=== PATIENT | male | born 1975 | race Caucasian/White ===

== ENCOUNTER 2018-12-25 09:14 | Inpatient (IN) | payer MEDICAID ==
[~2018-12-25] VITALS: Ht 167.6 cm; Wt 69.0 kg
[~2018-12-25 09:14] MED LIST: BENZ1TAB10 PO; BUPR150SR PO; BUSP10TA23 PO; DARU800T PO; GABA-531 PO; HALO5TAB2 PO; LEVO75 PO; OMEP20 PO; PARO20TA24 PO; QUET100T PO; QUET200T PO; RISP4 PO; RITO100T PO; TRAZ-252 PO; TRUVT PO
[2018-12-25] MEDS ORDERED: HALOPERIDOL 5 MG TABLET PO PRN ×2 (09:30→10:15)
[2018-12-25 09:35] VITALS: BP 106/74
[2018-12-25] MEDS ORDERED: QUEtiapine FUMARATE 200 MG TABLET PO PRN (10:15)
[2018-12-25 10:57] VITALS: BP 115/80
[2018-12-25] MEDS ORDERED: PNEUMOCOCCAL VACCINE POLYVALENT 0.5 ML VIAL [PPSV23] IM ONE (11:00)
[2018-12-25] MEDS: OLANZapine 10 MG TABLET PO SCH ×2 (11:14→20:22)
[2018-12-25] MEDS ORDERED: INFLUENZA VIRUS VACCINE QVS 2019-20 (3YR+)/PF 60 MCG/0.5 ML SYRINGE IM ONE (12:30)
[2018-12-25 16:00] VITALS: BP 108/65
[2018-12-25] MEDS ORDERED: GuaiFENesin/D-METHORPHAN [SUGAR-FREE] 200-20MG/10 ML SYRUP UDCUP PO PRN (16:00)
[2018-12-25] MEDS: LORazepam 2 MG TABLET PO PRN ×2 (16:00→20:31)
[2018-12-25] MEDS ORDERED: ONDANSETRON HCL 4 MG TABLET PO PRN (16:00)
[2018-12-25] MEDS ORDERED: MAGNESIUM HYDROXIDE SUSPENSION 30 ML UDCUP PO PRN (16:00)
[2018-12-25] MEDS ORDERED: DOCUSATE SODIUM 100 MG CAPSULE PO PRN (16:00)
[2018-12-25] MEDS ORDERED: IBUPROFEN 400 MG TABLET PO PRN (16:00)
[2018-12-25] MEDS ORDERED: LOPERAMIDE HCL 2 MG CAPSULE PO PRN (16:00)
[2018-12-25] MEDS ORDERED: ACETAMINOPHEN 325 MG TABLET PO PRN (16:00)
[2018-12-25] MEDS ORDERED: NICOTINE 14 MG/24 HOUR PATCH TD PRN (16:00)
[2018-12-25] MEDS ORDERED: MAG HYDROX/AL HYDROX/SIMETH ES 30 ML SUSPENSION UDCUP PO PRN (16:00)
[2018-12-25] MEDS ORDERED: CloNIDine HCL 0.1 MG TABLET PO PRN (16:00)
[2018-12-25] MEDS ORDERED: ALBUTEROL SULFATE HFA 90 MCG/PUFF 8 GM INHALER IH PRN (16:00)
[2018-12-25] MEDS: QUEtiapine FUMARATE 100 MG TABLET PO PRN (16:00)
[2018-12-25] MEDS ORDERED: PETROLATUM,WHITE 28 GM JELLY TP PRN (16:00)
[2018-12-25] MEDS: ZOLPIDEM TARTRATE 10 MG TABLET PO PRN (20:22)
[2018-12-26] MEDS: RITONAVIR 100 MG TABLET PO SCH (06:48)
[2018-12-26] MEDS: LEVOTHYROXINE SODIUM 75 MCG TABLET PO SCH (06:48)
[2018-12-26] MEDS: DARUNAVIR ETHANOLATE 800 MG TABLET PO SCH (06:48)
[2018-12-26 08:11] LABS: BASOPHILS % (AUTO) 1.3 % (0.0-2.0); EOSINOPHILS % (AUTO) 2.6 % (1.0-6.0); HEMATOCRIT 40.7 % (41-53); HEMOGLOBIN 13.7 g/dL (13.5-17.5); LYMPHOCYTES # (AUTO) 1.9 K/uL (1.0-4.8); LYMPHOCYTES % (AUTO) 48.1 % (22.0-44.0); MEAN CORPUSCULAR HEMOGLOBIN 33.8 pg (26.0-34.0); MEAN CORPUSCULAR HGB CONC 33.6 G/dL (31.0-37.0); MEAN CORPUSCULAR VOLUME 101 fL (80-100); MONOCYTES # (AUTO) 0.4 K/uL (0.1-1.0); MONOCYTES % (AUTO) 8.8 % (2.0-9.0); NEUTROPHILS # (AUTO) 1.6 K/uL (1.8-7.7); NEUTROPHILS % (AUTO) 39.2 % (40.0-70.0); PLATELET COUNT (AUTO) 274 K/uL (150-450); RED BLOOD CELL COUNT(AUTO) 4.04 MIL/uL (4.50-5.90); RED CELL DISTRIBUTION WIDTH 14.3 % (11.5-14.5)
[2018-12-26 08:22] LABS: HEMOGLOBIN A1C 4.4 % (4.5-6.2)
[2018-12-26 08:48] LABS: ALBUMIN 3.7 g/dL (3.4-5.0); BILIRUBIN,TOTAL 0.4 mg/dL (0.1-1.0); CALCIUM, TOTAL 9.1 mg/dL (8.8-10.5); CREATININE 1.65 mg/dL (0.60-1.30); FREE T4 (FREE THYROXINE) 0.68 ng/dL (0.76-1.46); POTASSIUM 3.5 mmol/L (3.5-5.1); THYROID STIMULATING HORMONE 1.83 uIU/mL (0.36-3.74); TOTAL PROTEIN, SERUM 7.3 g/dL (6.4-8.2)
[2018-12-26] MEDS: OLANZapine 10 MG TABLET PO SCH ×2 (09:43→20:27)
[2018-12-26] MEDS: EMTRICITABINE/TENOFOVIR 200-300 MG TABLET PO SCH (09:43)
[2018-12-26] MEDS: OMEPRAZOLE 20 MG CAPSULE PO SCH (09:44)
[2018-12-26] MEDS: LORazepam 2 MG TABLET PO PRN (19:25)
[2018-12-26] MEDS: ZOLPIDEM TARTRATE 10 MG TABLET PO PRN (20:27)
[2018-12-26] MEDS: QUEtiapine FUMARATE 100 MG TABLET PO PRN (22:04)
[2018-12-27] MEDS: DARUNAVIR ETHANOLATE 800 MG TABLET PO SCH (06:38)
[2018-12-27] MEDS: RITONAVIR 100 MG TABLET PO SCH (06:38)
[2018-12-27] MEDS: LEVOTHYROXINE SODIUM 75 MCG TABLET PO SCH (06:38)
[2018-12-27 08:24] VITALS: BP 103/73
[2018-12-27] MEDS: OLANZapine 10 MG TABLET PO SCH ×2 (08:56→20:14)
[2018-12-27] MEDS: OMEPRAZOLE 20 MG CAPSULE PO SCH (08:56)
[2018-12-27] MEDS: EMTRICITABINE/TENOFOVIR 200-300 MG TABLET PO SCH (08:56)
[2018-12-27 16:00] VITALS: BP 104/64
[2018-12-27] MEDS: LORazepam 2 MG TABLET PO PRN ×2 (16:32→21:34)
[2018-12-27] MEDS: QUEtiapine FUMARATE 100 MG TABLET PO PRN (16:32)
[2018-12-27] MEDS: ZOLPIDEM TARTRATE 10 MG TABLET PO PRN (20:14)
[2018-12-28] MEDS: LEVOTHYROXINE SODIUM 75 MCG TABLET PO SCH (06:30)
[2018-12-28] MEDS: DARUNAVIR ETHANOLATE 800 MG TABLET PO SCH (06:31)
[2018-12-28] MEDS: RITONAVIR 100 MG TABLET PO SCH (06:31)
[2018-12-28 08:02] VITALS: BP 100/64
[2018-12-28] MEDS: OLANZapine 10 MG TABLET PO SCH ×2 (08:22→20:53)
[2018-12-28] MEDS: OMEPRAZOLE 20 MG CAPSULE PO SCH (08:23)
[2018-12-28] MEDS: EMTRICITABINE/TENOFOVIR 200-300 MG TABLET PO SCH (08:23)
[2018-12-28] MEDS: BuPROPion HCL XL 150 MG ER TABLET PO SCH (12:15)
[2018-12-28 16:00] VITALS: BP 103/63
[2018-12-28] MEDS: QUEtiapine FUMARATE 100 MG TABLET PO PRN (17:18)
[2018-12-28] MEDS: LORazepam 2 MG TABLET PO PRN (17:18)
[2018-12-28] MEDS: ZOLPIDEM TARTRATE 10 MG TABLET PO PRN (20:53)
[2018-12-29 00:31] VITALS: BP 105/73
[2018-12-29] MEDS: LEVOTHYROXINE SODIUM 75 MCG TABLET PO SCH (06:21)
[2018-12-29] MEDS: DARUNAVIR ETHANOLATE 800 MG TABLET PO SCH (06:21)
[2018-12-29] MEDS: RITONAVIR 100 MG TABLET PO SCH (06:21)
[2018-12-29] MEDS: OMEPRAZOLE 20 MG CAPSULE PO SCH (09:00)
[2018-12-29] MEDS: OLANZapine 10 MG TABLET PO SCH ×2 (09:47→20:43)
[2018-12-29] MEDS: BuPROPion HCL XL 150 MG ER TABLET PO SCH (09:47)
[2018-12-29] MEDS: EMTRICITABINE/TENOFOVIR 200-300 MG TABLET PO SCH (09:47)
[2018-12-29 16:00] VITALS: BP 101/72
[2018-12-29] MEDS: QUEtiapine FUMARATE 100 MG TABLET PO PRN (16:24)
[2018-12-29] MEDS: LORazepam 2 MG TABLET PO PRN ×2 (16:24→20:43)
[2018-12-29] MEDS: ZOLPIDEM TARTRATE 10 MG TABLET PO PRN (20:43)
[2018-12-30] MEDS: LEVOTHYROXINE SODIUM 75 MCG TABLET PO SCH (06:46)
[2018-12-30] MEDS: DARUNAVIR ETHANOLATE 800 MG TABLET PO SCH (06:46)
[2018-12-30] MEDS: RITONAVIR 100 MG TABLET PO SCH (06:46)
[2018-12-30 08:00] VITALS: BP 99/65
[2018-12-30] MEDS: BuPROPion HCL XL 150 MG ER TABLET PO SCH (08:27)
[2018-12-30] MEDS: OLANZapine 10 MG TABLET PO SCH ×2 (08:27→20:44)
[2018-12-30] MEDS: OMEPRAZOLE 20 MG CAPSULE PO SCH (08:27)
[2018-12-30] MEDS: EMTRICITABINE/TENOFOVIR 200-300 MG TABLET PO SCH (08:27)
[2018-12-30 16:10] VITALS: BP 108/64
[2018-12-30] MEDS: LORazepam 2 MG TABLET PO PRN (20:44)
[2018-12-30] MEDS: QUEtiapine FUMARATE 100 MG TABLET PO PRN (20:44)
[2018-12-31 04:30] VITALS: BP 109/70
[2018-12-31] MEDS: LEVOTHYROXINE SODIUM 75 MCG TABLET PO SCH (06:26)
[2018-12-31] MEDS: DARUNAVIR ETHANOLATE 800 MG TABLET PO SCH (06:27)
[2018-12-31] MEDS: RITONAVIR 100 MG TABLET PO SCH (06:27)
[2018-12-31 08:30] VITALS: BP 103/57
[2018-12-31] MEDS: EMTRICITABINE/TENOFOVIR 200-300 MG TABLET PO SCH (09:06)
[2018-12-31] MEDS: BuPROPion HCL XL 150 MG ER TABLET PO SCH (09:06)
[2018-12-31] MEDS: OLANZapine 10 MG TABLET PO SCH ×2 (09:07→20:35)
[2018-12-31] MEDS: OMEPRAZOLE 20 MG CAPSULE PO SCH (09:07)
[2018-12-31 16:19] VITALS: BP 109/62
[2018-12-31] MEDS: LORazepam 2 MG TABLET PO PRN (16:58)
[2018-12-31] MEDS: QUEtiapine FUMARATE 100 MG TABLET PO PRN (16:58)
[2018-12-31] MEDS: ZOLPIDEM TARTRATE 10 MG TABLET PO PRN (20:35)
[2019-01-01 04:44] VITALS: BP 111/88
[2019-01-01] MEDS: RITONAVIR 100 MG TABLET PO SCH (06:35)
[2019-01-01] MEDS: DARUNAVIR ETHANOLATE 800 MG TABLET PO SCH (06:35)
[2019-01-01] MEDS: LEVOTHYROXINE SODIUM 75 MCG TABLET PO SCH (06:35)
[2019-01-01 08:03] VITALS: BP 100/65
[2019-01-01] MEDS: BuPROPion HCL XL 150 MG ER TABLET PO SCH (09:24)
[2019-01-01] MEDS: OMEPRAZOLE 20 MG CAPSULE PO SCH (09:25)
[2019-01-01] MEDS: OLANZapine 10 MG TABLET PO SCH ×2 (09:25→20:40)
[2019-01-01] MEDS: EMTRICITABINE/TENOFOVIR 200-300 MG TABLET PO SCH (09:26)
[2019-01-01] MEDS: LORazepam 2 MG TABLET PO PRN ×2 (12:25→20:39)
[2019-01-01] MEDS: QUEtiapine FUMARATE 100 MG TABLET PO PRN (13:04)
[2019-01-01 16:23] VITALS: BP 107/66
[2019-01-01] MEDS: ZOLPIDEM TARTRATE 10 MG TABLET PO PRN (20:39)
[2019-01-02] MEDS: LORazepam 2 MG TABLET PO PRN ×2 (01:02→20:39)
[2019-01-02] MEDS: QUEtiapine FUMARATE 100 MG TABLET PO PRN (01:02)
[2019-01-02 06:35] VITALS: BP 113/64
[2019-01-02] MEDS: LEVOTHYROXINE SODIUM 75 MCG TABLET PO SCH (07:03)
[2019-01-02] MEDS: DARUNAVIR ETHANOLATE 800 MG TABLET PO SCH (07:03)
[2019-01-02] MEDS: RITONAVIR 100 MG TABLET PO SCH (07:03)
[2019-01-02] MEDS: EMTRICITABINE/TENOFOVIR 200-300 MG TABLET PO SCH (09:30)
[2019-01-02] MEDS: OMEPRAZOLE 20 MG CAPSULE PO SCH (09:30)
[2019-01-02] MEDS: OLANZapine 10 MG TABLET PO SCH ×2 (09:30→20:39)
[2019-01-02] MEDS: BuPROPion HCL XL 150 MG ER TABLET PO SCH (09:30)
[2019-01-02 16:00] VITALS: BP 118/68
[2019-01-02] MEDS: ZOLPIDEM TARTRATE 10 MG TABLET PO PRN (20:39)
[2019-01-03] MEDS: LORazepam 2 MG TABLET PO PRN ×2 (00:11→16:36)
[2019-01-03] MEDS: QUEtiapine FUMARATE 100 MG TABLET PO PRN ×2 (00:12→16:36)
[2019-01-03 00:34] VITALS: BP 135/69
[2019-01-03] MEDS: LEVOTHYROXINE SODIUM 75 MCG TABLET PO SCH (06:22)
[2019-01-03] MEDS: RITONAVIR 100 MG TABLET PO SCH (06:23)
[2019-01-03] MEDS: DARUNAVIR ETHANOLATE 800 MG TABLET PO SCH (06:23)
[2019-01-03] MEDS: EMTRICITABINE/TENOFOVIR 200-300 MG TABLET PO SCH (09:50)
[2019-01-03] MEDS: OLANZapine 10 MG TABLET PO SCH ×2 (09:51→20:33)
[2019-01-03] MEDS: BuPROPion HCL XL 150 MG ER TABLET PO SCH (09:51)
[2019-01-03] MEDS: OMEPRAZOLE 20 MG CAPSULE PO SCH (09:52)
[2019-01-03 11:04] VITALS: BP 105/64
[2019-01-03 16:09] VITALS: BP 110/66
[2019-01-03] MEDS: ZOLPIDEM TARTRATE 10 MG TABLET PO PRN (20:33)
[2019-01-04 00:10] VITALS: BP 109/62
[2019-01-04] MEDS: LEVOTHYROXINE SODIUM 75 MCG TABLET PO SCH (07:10)
[2019-01-04] MEDS: RITONAVIR 100 MG TABLET PO SCH (07:10)
[2019-01-04] MEDS: DARUNAVIR ETHANOLATE 800 MG TABLET PO SCH (07:10)
[2019-01-04 08:11] VITALS: BP 100/61
[2019-01-04] MEDS: EMTRICITABINE/TENOFOVIR 200-300 MG TABLET PO SCH (08:40)
[2019-01-04] MEDS: OLANZapine 10 MG TABLET PO SCH ×2 (08:40→20:09)
[2019-01-04] MEDS: BuPROPion HCL XL 150 MG ER TABLET PO SCH (08:40)
[2019-01-04] MEDS: OMEPRAZOLE 20 MG CAPSULE PO SCH (08:40)
[2019-01-04 16:00] VITALS: BP 105/70
[2019-01-04] MEDS: QUEtiapine FUMARATE 100 MG TABLET PO PRN (20:09)
[2019-01-05 06:18] VITALS: BP 112/70
[2019-01-05] MEDS: DARUNAVIR ETHANOLATE 800 MG TABLET PO SCH (07:12)
[2019-01-05] MEDS: RITONAVIR 100 MG TABLET PO SCH (07:12)
[2019-01-05] MEDS: LEVOTHYROXINE SODIUM 75 MCG TABLET PO SCH (07:12)
[2019-01-05 08:12] VITALS: BP 120/55
[2019-01-05] MEDS: OLANZapine 10 MG TABLET PO SCH (09:17)
[2019-01-05] MEDS: EMTRICITABINE/TENOFOVIR 200-300 MG TABLET PO SCH (09:17)
[2019-01-05] MEDS: BuPROPion HCL XL 150 MG ER TABLET PO SCH (09:18)
[2019-01-05] MEDS: OMEPRAZOLE 20 MG CAPSULE PO SCH (09:18)
[2019-01-05] MEDS ORDERED: BuPROPion HCL XL 150 MG ER TABLET PO ONE ×2 (10:30→11:45)
[2019-01-05 16:00] VITALS: BP 108/64
[2019-01-05] MEDS ORDERED: PredniSONE 20 MG TABLET PO ONE (17:45)
[2019-01-05] MEDS ORDERED: DiphenhydrAMINE HCL 25 MG CAPSULE PO ONE (17:45)
[2019-01-05] MEDS ORDERED: PredniSONE 10 MG TABLET PO ONE (18:00)
[2019-01-05] MEDS: SIMVASTATIN 10 MG TABLET PO SCH (20:18)
[2019-01-05] MEDS: OLANZapine 7.5 MG TABLET PO SCH (20:18)
[2019-01-05] MEDS: ZOLPIDEM TARTRATE 10 MG TABLET PO PRN (20:18)
[2019-01-06] MEDS: RITONAVIR 100 MG TABLET PO SCH (06:39)
[2019-01-06] MEDS: LEVOTHYROXINE SODIUM 75 MCG TABLET PO SCH (06:39)
[2019-01-06] MEDS: DARUNAVIR ETHANOLATE 800 MG TABLET PO SCH (06:40)
[2019-01-06 06:43] VITALS: BP 115/75
[2019-01-06 08:17] VITALS: BP 100/57
[2019-01-06] MEDS: EMTRICITABINE/TENOFOVIR 200-300 MG TABLET PO SCH (09:18)
[2019-01-06] MEDS: OLANZapine 10 MG TABLET PO SCH (09:18)
[2019-01-06] MEDS: OMEPRAZOLE 20 MG CAPSULE PO SCH (09:19)
[2019-01-06] MEDS: BuPROPion HCL XL 150 MG ER TABLET PO SCH (09:19)
[2019-01-06] MEDS ORDERED: BUPR-93 PO (13:04)
[2019-01-06] MEDS ORDERED: RITO100T PO ×2 (13:06)
[2019-01-06] MEDS ORDERED: SIMV-259 PO (13:06)
[2019-01-06] MEDS ORDERED: OLAN7.5T2 PO (13:07)
[2019-01-06 16:44] VITALS: BP 111/71
[2019-01-06] MEDS: LORazepam 2 MG TABLET PO PRN (17:12)
[2019-01-06] MEDS: SIMVASTATIN 10 MG TABLET PO SCH (20:29)
[2019-01-06] MEDS: OLANZapine 7.5 MG TABLET PO SCH (20:29)
[2019-01-06] MEDS: ZOLPIDEM TARTRATE 10 MG TABLET PO PRN (20:29)
[2019-01-07 00:48] VITALS: BP 106/66
[2019-01-07] MEDS: LORazepam 2 MG TABLET PO PRN ×3 (00:57→16:33)
[2019-01-07] MEDS: LEVOTHYROXINE SODIUM 75 MCG TABLET PO SCH (06:38)
[2019-01-07] MEDS: RITONAVIR 100 MG TABLET PO SCH (06:38)
[2019-01-07] MEDS: DARUNAVIR ETHANOLATE 800 MG TABLET PO SCH (06:39)
[2019-01-07] MEDS: OLANZapine 10 MG TABLET PO SCH (09:19)
[2019-01-07] MEDS: BuPROPion HCL XL 150 MG ER TABLET PO SCH (09:19)
[2019-01-07] MEDS: EMTRICITABINE/TENOFOVIR 200-300 MG TABLET PO SCH (09:19)
[2019-01-07] MEDS: OMEPRAZOLE 20 MG CAPSULE PO SCH (09:41)
[2019-01-07 09:48] VITALS: BP 108/62
[2019-01-07 16:00] VITALS: BP 105/68
[2019-01-07] MEDS: QUEtiapine FUMARATE 100 MG TABLET PO PRN (16:33)
[2019-01-07] MEDS: SIMVASTATIN 10 MG TABLET PO SCH (20:24)
[2019-01-07] MEDS: OLANZapine 7.5 MG TABLET PO SCH (20:24)
[2019-01-07] MEDS: ZOLPIDEM TARTRATE 10 MG TABLET PO PRN (20:24)
[2019-01-08 00:34] VITALS: BP 114/67
[2019-01-08] MEDS: DARUNAVIR ETHANOLATE 800 MG TABLET PO SCH (06:28)
[2019-01-08] MEDS: RITONAVIR 100 MG TABLET PO SCH (06:28)
[2019-01-08] MEDS: LEVOTHYROXINE SODIUM 75 MCG TABLET PO SCH (06:28)
[2019-01-08] MEDS: OLANZapine 10 MG TABLET PO SCH (08:51)
[2019-01-08] MEDS: OMEPRAZOLE 20 MG CAPSULE PO SCH (08:51)
[2019-01-08] MEDS: BuPROPion HCL XL 150 MG ER TABLET PO SCH (08:51)
[2019-01-08] MEDS: EMTRICITABINE/TENOFOVIR 200-300 MG TABLET PO SCH (08:51)
[2019-01-08 16:00] VITALS: BP 110/66
[2019-01-08] MEDS: LORazepam 2 MG TABLET PO PRN ×2 (16:23→22:11)
[2019-01-08] MEDS: ZOLPIDEM TARTRATE 10 MG TABLET PO PRN (20:15)
[2019-01-08] MEDS: OLANZapine 7.5 MG TABLET PO SCH (20:15)
[2019-01-08] MEDS: SIMVASTATIN 10 MG TABLET PO SCH (20:15)
[2019-01-08] MEDS: QUEtiapine FUMARATE 100 MG TABLET PO PRN (22:12)
[2019-01-09 01:12] VITALS: BP 116/68
[2019-01-09] MEDS: DARUNAVIR ETHANOLATE 800 MG TABLET PO SCH (06:17)
[2019-01-09] MEDS: LEVOTHYROXINE SODIUM 75 MCG TABLET PO SCH (06:17)
[2019-01-09] MEDS: RITONAVIR 100 MG TABLET PO SCH (06:17)
[2019-01-09] MEDS: BuPROPion HCL XL 150 MG ER TABLET PO SCH (09:56)
[2019-01-09] MEDS: OMEPRAZOLE 20 MG CAPSULE PO SCH (09:57)
[2019-01-09] MEDS: OLANZapine 10 MG TABLET PO SCH (09:57)
[2019-01-09] MEDS: EMTRICITABINE/TENOFOVIR 200-300 MG TABLET PO SCH (09:57)
== END 2019-01-09 13:15 | disposition home or self-care (01) | DRG 750 ==
LOC: B3A 10:30 → UNDODISIN 01-02 10:21
PROVIDERS: ATTEND Psychiatry & Neurology Psychiatry
DX: F25.9 Schizoaffective disorder, unspecified (principal); R45.851 Suicidal ideations; Z59.0 Homelessness; D64.9 Anemia, unspecified; E03.9 Hypothyroidism, unspecified; E78.5 Hyperlipidemia, unspecified; F32.9 Major depressive disorder, single episode, unspecified; Z88.8 Allergy status to other drugs, medicaments and biological substances; Z91.018 Allergy to other foods; I10 Essential (primary) hypertension; K21.9 Gastro-esophageal reflux disease without esophagitis; Z79.899 Other long term (current) drug therapy; Z91.5 Personal history of self-harm
CPT/HCPCS: 83036; 84439; 84443; 90686; 90732

== ENCOUNTER 2019-02-04 16:35 | Inpatient (IN) | payer MEDICAID ==
[~2019-02-04] VITALS: Ht 167.6 cm; Wt 68.5 kg
[~2019-02-04 16:35] MED LIST changes: -BENZ1TAB10 PO; +BUPR-93 PO; -BUPR150SR PO; -BUSP10TA23 PO; -GABA-531 PO; -HALO5TAB2 PO; +OLAN7.5T2 PO; -PARO20TA24 PO; -QUET100T PO; -RISP4 PO; +SIMV-259 PO; -TRAZ-252 PO
[2019-02-04 19:02] LABS: BASOPHILS % (AUTO) 0.6 % (0.0-2.0); EOSINOPHILS % (AUTO) 2.2 % (1.0-6.0); HEMATOCRIT 43.4 % (41-53); HEMOGLOBIN 14.9 g/dL (13.5-17.5); LYMPHOCYTES # (AUTO) 2.1 K/uL (1.0-4.8); LYMPHOCYTES % (AUTO) 51.6 % (22.0-44.0); MEAN CORPUSCULAR HEMOGLOBIN 33.9 pg (26.0-34.0); MEAN CORPUSCULAR HGB CONC 34.2 G/dL (31.0-37.0); MEAN CORPUSCULAR VOLUME 99 fL (80-100); MONOCYTES # (AUTO) 0.4 K/uL (0.1-1.0); MONOCYTES % (AUTO) 8.7 % (2.0-9.0); NEUTROPHILS # (AUTO) 1.5 K/uL (1.8-7.7); NEUTROPHILS % (AUTO) 36.9 % (40.0-70.0); PLATELET COUNT (AUTO) 202 K/uL (150-450); RED BLOOD CELL COUNT(AUTO) 4.39 MIL/uL (4.50-5.90); RED CELL DISTRIBUTION WIDTH 12.9 % (11.5-14.5)
[2019-02-04 19:39] LABS: ANION GAP 6 mmol/L (8-16); CALCIUM, TOTAL 9.2 mg/dL (8.8-10.5); CARBON DIOXIDE 29 mmol/L (22-29); CHLORIDE 102 mmol/L (98-107); CREATININE 1.88 mg/dL (0.60-1.30); GLOMERULAR FILTR. RATE CALC 39 mL/min (>60); GLUCOSE,RANDOM 96 mg/dL (70-110); POTASSIUM 3.9 mmol/L (3.5-5.1); SODIUM SERUM 137 mmol/L (136-145); UREA NITROGEN, BLOOD 15 mg/dL (7-18)
[2019-02-04 19:42] LABS: ALANINE AMINOTRANSFERASE 16 U/L (12-78); ALBUMIN 4.2 g/dL (3.4-5.0); ALKALINE PHOSPHATASE 277 U/L (46-116); ASPARTATE AMINOTRANSFERASE 12 U/L (15-37); BILIRUBIN,TOTAL 0.4 mg/dL (0.1-1.0); TOTAL PROTEIN, SERUM 8.2 g/dL (6.4-8.2)
[2019-02-04 21:01] LABS: AMPHET/METH SCREEN,URINE NEGATIVE (NEGATIVE); BARBITURATE SCREEN, URINE NEGATIVE (NEGATIVE); BENZODIAZEPINES SCREEN,URINE NEGATIVE (NEGATIVE); CANNABINOID SCREEN,URINE NEGATIVE (NEGATIVE); COCAINE SCREEN,URINE NEGATIVE (NEGATIVE); METHADONE SCREEN, URINE NEGATIVE (NEGATIVE); OPIATE SCREEN,URINE NEGATIVE (NEGATIVE)
[2019-02-04 21:02] LABS: PHENCYCLIDINE SCREEN,URINE NEGATIVE (NEGATIVE)
[2019-02-05] MEDS ORDERED: -PHARMACY VACCINE NOTE- MISC ONE (02:15)
[2019-02-05 06:53] VITALS: BP 123/82
[2019-02-05 07:37] LABS: HEMOGLOBIN A1C 4.9 % (4.5-6.2)
[2019-02-05] MEDS ORDERED: NICOTINE 14 MG/24 HOUR PATCH TD PRN (07:45)
[2019-02-05] MEDS ORDERED: ONDANSETRON HCL 4 MG TABLET PO PRN (07:45)
[2019-02-05] MEDS ORDERED: GuaiFENesin/D-METHORPHAN [SUGAR-FREE] 200-20MG/10 ML SYRUP UDCUP PO PRN (07:45)
[2019-02-05] MEDS ORDERED: LOPERAMIDE HCL 2 MG CAPSULE PO PRN (07:45)
[2019-02-05] MEDS ORDERED: DOCUSATE SODIUM 100 MG CAPSULE PO PRN (07:45)
[2019-02-05] MEDS ORDERED: ALBUTEROL SULFATE HFA 90 MCG/PUFF 8 GM INHALER IH PRN (07:45)
[2019-02-05] MEDS ORDERED: PETROLATUM,WHITE 28 GM JELLY TP PRN (07:45)
[2019-02-05] MEDS ORDERED: MAG HYDROX/AL HYDROX/SIMETH ES 30 ML SUSPENSION UDCUP PO PRN (07:45)
[2019-02-05] MEDS ORDERED: CloNIDine HCL 0.1 MG TABLET PO PRN (07:45)
[2019-02-05] MEDS ORDERED: IBUPROFEN 400 MG TABLET PO PRN (07:45)
[2019-02-05] MEDS ORDERED: MAGNESIUM HYDROXIDE SUSPENSION 30 ML UDCUP PO PRN (07:45)
[2019-02-05] MEDS ORDERED: ACETAMINOPHEN 325 MG TABLET PO PRN (07:45)
[2019-02-05 08:14] LABS: FREE T4 (FREE THYROXINE) 0.68 ng/dL (0.76-1.46)
[2019-02-05 08:35] VITALS: BP 104/72
[2019-02-05] MEDS: LORazepam 2 MG TABLET PO PRN ×3 (08:55→20:15)
[2019-02-05] MEDS ORDERED: QUET100T PO (10:48)
[2019-02-05] MEDS: BuPROPion HCL XL 150 MG ER TABLET PO SCH (11:02)
[2019-02-05] MEDS: DARUNAVIR ETHANOLATE 800 MG TABLET PO SCH (16:02)
[2019-02-05] MEDS: EMTRICITABINE/TENOFOVIR 200-300 MG TABLET PO SCH (16:02)
[2019-02-05] MEDS: RITONAVIR 100 MG TABLET PO SCH (16:02)
[2019-02-05 16:11] VITALS: BP 104/65
[2019-02-05] MEDS: OLANZapine 7.5 MG TABLET PO SCH (20:15)
[2019-02-05] MEDS: SIMVASTATIN 10 MG TABLET PO SCH (20:15)
[2019-02-05] MEDS: ZOLPIDEM TARTRATE 10 MG TABLET PO PRN (20:16)
[2019-02-06 05:41] VITALS: BP 113/76
[2019-02-06] MEDS: LEVOTHYROXINE SODIUM 75 MCG TABLET PO SCH (06:18)
[2019-02-06] MEDS: DARUNAVIR ETHANOLATE 800 MG TABLET PO SCH (06:18)
[2019-02-06] MEDS: RITONAVIR 100 MG TABLET PO SCH (06:18)
[2019-02-06 09:02] VITALS: BP 105/71
[2019-02-06] MEDS: BuPROPion HCL XL 150 MG ER TABLET PO SCH (09:13)
[2019-02-06] MEDS: EMTRICITABINE/TENOFOVIR 200-300 MG TABLET PO SCH (09:13)
[2019-02-06] MEDS: LORazepam 2 MG TABLET PO PRN (13:06)
[2019-02-06] MEDS: QUEtiapine FUMARATE 100 MG TABLET PO PRN (13:53)
[2019-02-06 16:10] VITALS: BP 110/65
[2019-02-06] MEDS: OLANZapine 7.5 MG TABLET PO SCH (20:38)
[2019-02-06] MEDS: SIMVASTATIN 10 MG TABLET PO SCH (20:39)
[2019-02-07] MEDS: RITONAVIR 100 MG TABLET PO SCH (06:36)
[2019-02-07] MEDS: LEVOTHYROXINE SODIUM 75 MCG TABLET PO SCH (06:36)
[2019-02-07] MEDS: DARUNAVIR ETHANOLATE 800 MG TABLET PO SCH (06:36)
[2019-02-07 08:09] VITALS: BP 102/54
[2019-02-07] MEDS: BuPROPion HCL XL 150 MG ER TABLET PO SCH (08:37)
[2019-02-07] MEDS: EMTRICITABINE/TENOFOVIR 200-300 MG TABLET PO SCH (08:38)
[2019-02-07] MEDS: MUPIROCIN CALCIUM 2% 22 GM OINTMENT NASAL SCH ×2 (12:41→16:23)
[2019-02-07 16:06] VITALS: BP 109/72
[2019-02-07] MEDS: SIMVASTATIN 10 MG TABLET PO SCH (20:03)
[2019-02-07] MEDS: OLANZapine 7.5 MG TABLET PO SCH (20:04)
[2019-02-07] MEDS: ZOLPIDEM TARTRATE 10 MG TABLET PO PRN (20:39)
[2019-02-08] MEDS: DARUNAVIR ETHANOLATE 800 MG TABLET PO SCH (06:38)
[2019-02-08] MEDS: LEVOTHYROXINE SODIUM 75 MCG TABLET PO SCH (06:38)
[2019-02-08] MEDS: RITONAVIR 100 MG TABLET PO SCH (06:38)
[2019-02-08 08:29] VITALS: BP 107/57
[2019-02-08] MEDS: EMTRICITABINE/TENOFOVIR 200-300 MG TABLET PO SCH (08:32)
[2019-02-08] MEDS: BuPROPion HCL XL 150 MG ER TABLET PO SCH (08:32)
[2019-02-08] MEDS: MUPIROCIN CALCIUM 2% 22 GM OINTMENT NASAL SCH ×2 (08:32→17:13)
[2019-02-08] MEDS ORDERED: TUBERCULIN, PURIFIED PROTEIN DERIVATIVE 5 TU/0.1 ML SYRINGE ID ONE (10:45)
[2019-02-08] MEDS: QUEtiapine FUMARATE 100 MG TABLET PO PRN (15:54)
[2019-02-08] MEDS: LORazepam 2 MG TABLET PO PRN ×2 (15:54→20:21)
[2019-02-08 16:19] VITALS: BP 114/64
[2019-02-08] MEDS: ZOLPIDEM TARTRATE 10 MG TABLET PO PRN (20:21)
[2019-02-08] MEDS: OLANZapine 7.5 MG TABLET PO SCH (20:21)
[2019-02-08] MEDS: SIMVASTATIN 10 MG TABLET PO SCH (20:21)
[2019-02-09 01:41] VITALS: BP 105/80
[2019-02-09] MEDS: RITONAVIR 100 MG TABLET PO SCH (06:31)
[2019-02-09] MEDS: DARUNAVIR ETHANOLATE 800 MG TABLET PO SCH (06:31)
[2019-02-09] MEDS: LEVOTHYROXINE SODIUM 75 MCG TABLET PO SCH (06:31)
[2019-02-09] MEDS: EMTRICITABINE/TENOFOVIR 200-300 MG TABLET PO SCH (09:01)
[2019-02-09] MEDS: BuPROPion HCL XL 150 MG ER TABLET PO SCH (09:01)
[2019-02-09 09:03] LABS: CALCIUM, TOTAL 8.8 mg/dL (8.8-10.5); CREATININE 1.79 mg/dL (0.60-1.30); POTASSIUM 3.6 mmol/L (3.5-5.1)
[2019-02-09] MEDS: MUPIROCIN CALCIUM 2% 22 GM OINTMENT NASAL SCH ×2 (09:03→16:31)
[2019-02-09] MEDS ORDERED: TUBERCULIN, PURIFIED PROTEIN DERIVATIVE 5 TU/0.1 ML SYRINGE ID ONE (11:00)
[2019-02-09] MEDS: LORazepam 2 MG TABLET PO PRN ×2 (15:44→20:21)
[2019-02-09] MEDS: QUEtiapine FUMARATE 100 MG TABLET PO PRN (15:45)
[2019-02-09 16:04] VITALS: BP 122/66
[2019-02-09] MEDS: SIMVASTATIN 10 MG TABLET PO SCH (20:21)
[2019-02-09] MEDS: OLANZapine 7.5 MG TABLET PO SCH (20:21)
[2019-02-09] MEDS: ZOLPIDEM TARTRATE 10 MG TABLET PO PRN (20:22)
[2019-02-10] MEDS: DARUNAVIR ETHANOLATE 800 MG TABLET PO SCH (06:22)
[2019-02-10] MEDS: RITONAVIR 100 MG TABLET PO SCH (06:22)
[2019-02-10] MEDS: LEVOTHYROXINE SODIUM 75 MCG TABLET PO SCH (06:22)
[2019-02-10] MEDS: EMTRICITABINE/TENOFOVIR 200-300 MG TABLET PO SCH (08:32)
[2019-02-10] MEDS: BuPROPion HCL XL 150 MG ER TABLET PO SCH (08:32)
[2019-02-10] MEDS: QUEtiapine FUMARATE 100 MG TABLET PO PRN ×2 (08:32→16:51)
[2019-02-10] MEDS: MUPIROCIN CALCIUM 2% 22 GM OINTMENT NASAL SCH ×2 (08:32→16:51)
[2019-02-10] MEDS: LORazepam 2 MG TABLET PO PRN ×2 (08:32→16:51)
[2019-02-10 16:10] VITALS: BP 111/69
[2019-02-10] MEDS: SIMVASTATIN 10 MG TABLET PO SCH (20:11)
[2019-02-10] MEDS: OLANZapine 7.5 MG TABLET PO SCH (20:11)
[2019-02-10] MEDS: ZOLPIDEM TARTRATE 10 MG TABLET PO PRN (20:11)
[2019-02-11 00:36] VITALS: BP 99/62
[2019-02-11] MEDS: LEVOTHYROXINE SODIUM 75 MCG TABLET PO SCH (06:36)
[2019-02-11] MEDS: RITONAVIR 100 MG TABLET PO SCH (06:36)
[2019-02-11] MEDS: DARUNAVIR ETHANOLATE 800 MG TABLET PO SCH (06:36)
[2019-02-11 08:09] VITALS: BP 104/60
[2019-02-11] MEDS: BuPROPion HCL XL 150 MG ER TABLET PO SCH (08:50)
[2019-02-11] MEDS: MUPIROCIN CALCIUM 2% 22 GM OINTMENT NASAL SCH ×2 (08:51→18:03)
[2019-02-11] MEDS: EMTRICITABINE/TENOFOVIR 200-300 MG TABLET PO SCH (08:52)
[2019-02-11 16:10] VITALS: BP 120/81
[2019-02-11] MEDS: SIMVASTATIN 10 MG TABLET PO SCH (20:01)
[2019-02-11] MEDS: OLANZapine 7.5 MG TABLET PO SCH (20:03)
[2019-02-12 05:49] VITALS: BP 101/73
[2019-02-12] MEDS: RITONAVIR 100 MG TABLET PO SCH (06:46)
[2019-02-12] MEDS: LEVOTHYROXINE SODIUM 75 MCG TABLET PO SCH (06:46)
[2019-02-12] MEDS: DARUNAVIR ETHANOLATE 800 MG TABLET PO SCH (06:46)
[2019-02-12 08:16] VITALS: BP 133/63
[2019-02-12] MEDS: BuPROPion HCL XL 150 MG ER TABLET PO SCH (08:49)
[2019-02-12] MEDS: EMTRICITABINE/TENOFOVIR 200-300 MG TABLET PO SCH (08:49)
[2019-02-12] MEDS: LORazepam 2 MG TABLET PO PRN ×2 (08:50→20:08)
[2019-02-12] MEDS: QUEtiapine FUMARATE 100 MG TABLET PO PRN (08:50)
[2019-02-12 16:11] VITALS: BP 104/73
[2019-02-12] MEDS: OLANZapine 7.5 MG TABLET PO SCH (20:07)
[2019-02-12] MEDS: SIMVASTATIN 10 MG TABLET PO SCH (20:07)
[2019-02-13] MEDS: RITONAVIR 100 MG TABLET PO SCH (06:33)
[2019-02-13] MEDS: DARUNAVIR ETHANOLATE 800 MG TABLET PO SCH (06:33)
[2019-02-13] MEDS: LEVOTHYROXINE SODIUM 75 MCG TABLET PO SCH (06:33)
[2019-02-13 06:43] VITALS: BP 96/61
[2019-02-13 08:15] VITALS: BP 138/81
[2019-02-13] MEDS: BuPROPion HCL XL 150 MG ER TABLET PO SCH (09:30)
[2019-02-13] MEDS: EMTRICITABINE/TENOFOVIR 200-300 MG TABLET PO SCH (09:30)
[2019-02-13] MEDS: QUEtiapine FUMARATE 100 MG TABLET PO PRN (13:55)
[2019-02-13 16:13] VITALS: BP 111/68
[2019-02-13] MEDS: SIMVASTATIN 10 MG TABLET PO SCH (21:02)
[2019-02-13] MEDS: OLANZapine 7.5 MG TABLET PO SCH (21:03)
[2019-02-14 06:21] VITALS: BP 109/69
[2019-02-14] MEDS: LEVOTHYROXINE SODIUM 75 MCG TABLET PO SCH (06:37)
[2019-02-14] MEDS: DARUNAVIR ETHANOLATE 800 MG TABLET PO SCH (06:37)
[2019-02-14] MEDS: RITONAVIR 100 MG TABLET PO SCH (06:37)
[2019-02-14] MEDS: QUEtiapine FUMARATE 100 MG TABLET PO PRN ×2 (09:48→16:47)
[2019-02-14] MEDS: LORazepam 2 MG TABLET PO PRN ×2 (09:48→16:47)
[2019-02-14] MEDS: BuPROPion HCL XL 150 MG ER TABLET PO SCH (09:48)
[2019-02-14] MEDS: EMTRICITABINE/TENOFOVIR 200-300 MG TABLET PO SCH (09:48)
[2019-02-14] MEDS: OLANZapine 7.5 MG TABLET PO SCH (20:34)
[2019-02-14] MEDS: ZOLPIDEM TARTRATE 10 MG TABLET PO PRN (20:34)
[2019-02-14] MEDS: SIMVASTATIN 10 MG TABLET PO SCH (20:34)
[2019-02-15 05:05] VITALS: BP 119/71
[2019-02-15] MEDS: RITONAVIR 100 MG TABLET PO SCH (06:44)
[2019-02-15] MEDS: LEVOTHYROXINE SODIUM 75 MCG TABLET PO SCH (06:44)
[2019-02-15] MEDS: DARUNAVIR ETHANOLATE 800 MG TABLET PO SCH (06:44)
[2019-02-15 08:20] VITALS: BP 100/65
[2019-02-15] MEDS: EMTRICITABINE/TENOFOVIR 200-300 MG TABLET PO SCH (08:32)
[2019-02-15] MEDS: BuPROPion HCL XL 150 MG ER TABLET PO SCH (08:32)
[2019-02-15 09:05] LABS: APPEARANCE,URINE CLOUDY (CLEAR); BILIRUBIN,URINE NEGATIVE (NEGATIVE); GLUCOSE, URINE (UA) 100 mg/dL (NEGATIVE); KETONES,URINE NEGATIVE (NEGATIVE); LEUKOCYTE ESTERASE ,URINE NEGATIVE (NEGATIVE); NITRATE,URINE NEGATIVE (NEGATIVE); PH,URINE 7.5 (5.0-8.0); PROTEIN,URINE SEE CONFIRM (NEGATIVE); UROBILINOGEN,URINE 0.2 mg/dL (<=1.0)
[2019-02-15 09:10] LABS: OCCULT BLOOD,URINE TRACE (NEGATIVE)
[2019-02-15 09:11] LABS: BACTERIA,URINE None Seen /HPF (None Seen); CALCIUM OXALATE CRYSTALS,UR Few /LPF (None Seen); RBC,URINE 0-2 /HPF (0-2); SULFOSALICYLIC ACID,URINE 1+ (Negative); WBC,URINE None Seen /HPF (0-5)
[2019-02-15 16:00] VITALS: BP 106/65
[2019-02-15] MEDS: QUEtiapine FUMARATE 100 MG TABLET PO PRN (16:06)
[2019-02-15] MEDS: LORazepam 2 MG TABLET PO PRN ×2 (16:06→20:41)
[2019-02-15] MEDS: ZOLPIDEM TARTRATE 10 MG TABLET PO PRN (20:41)
[2019-02-15] MEDS: SIMVASTATIN 10 MG TABLET PO SCH (20:41)
[2019-02-15] MEDS: OLANZapine 7.5 MG TABLET PO SCH (20:41)
[2019-02-16] MEDS: LEVOTHYROXINE SODIUM 75 MCG TABLET PO SCH (06:41)
[2019-02-16] MEDS: DARUNAVIR ETHANOLATE 800 MG TABLET PO SCH (06:42)
[2019-02-16] MEDS: RITONAVIR 100 MG TABLET PO SCH (06:42)
[2019-02-16 08:39] VITALS: BP 101/60
[2019-02-16] MEDS: EMTRICITABINE/TENOFOVIR 200-300 MG TABLET PO SCH (08:45)
[2019-02-16] MEDS: BuPROPion HCL XL 150 MG ER TABLET PO SCH (08:45)
[2019-02-16 16:11] VITALS: BP 111/74
[2019-02-16] MEDS: QUEtiapine FUMARATE 100 MG TABLET PO PRN (16:53)
[2019-02-16] MEDS: OLANZapine 7.5 MG TABLET PO SCH (20:46)
[2019-02-16] MEDS: SIMVASTATIN 10 MG TABLET PO SCH (20:46)
[2019-02-17] VITALS: BP 113/75
[2019-02-17] MEDS: LEVOTHYROXINE SODIUM 75 MCG TABLET PO SCH (06:43)
[2019-02-17] MEDS: DARUNAVIR ETHANOLATE 800 MG TABLET PO SCH (06:44)
[2019-02-17] MEDS: RITONAVIR 100 MG TABLET PO SCH (06:44)
[2019-02-17] MEDS: EMTRICITABINE/TENOFOVIR 200-300 MG TABLET PO SCH (08:55)
[2019-02-17] MEDS: BuPROPion HCL XL 150 MG ER TABLET PO SCH (08:55)
[2019-02-17 16:00] VITALS: BP 112/74
[2019-02-17] MEDS: LORazepam 2 MG TABLET PO PRN (16:10)
[2019-02-17] MEDS: QUEtiapine FUMARATE 100 MG TABLET PO PRN (16:10)
[2019-02-17] MEDS: OLANZapine 7.5 MG TABLET PO SCH (20:17)
[2019-02-17] MEDS: SIMVASTATIN 10 MG TABLET PO SCH (20:17)
[2019-02-18 01:16] VITALS: BP 113/76
[2019-02-18] MEDS: DARUNAVIR ETHANOLATE 800 MG TABLET PO SCH (06:37)
[2019-02-18] MEDS: LEVOTHYROXINE SODIUM 75 MCG TABLET PO SCH (06:37)
[2019-02-18] MEDS: RITONAVIR 100 MG TABLET PO SCH (06:37)
[2019-02-18] MEDS: EMTRICITABINE/TENOFOVIR 200-300 MG TABLET PO SCH (08:30)
[2019-02-18] MEDS: BuPROPion HCL XL 150 MG ER TABLET PO SCH (08:30)
[2019-02-18 16:15] VITALS: BP 105/63
[2019-02-18] MEDS: SIMVASTATIN 10 MG TABLET PO SCH (20:06)
[2019-02-18] MEDS: LORazepam 2 MG TABLET PO PRN (20:06)
[2019-02-18] MEDS: OLANZapine 7.5 MG TABLET PO SCH (20:06)
[2019-02-18] MEDS: QUEtiapine FUMARATE 100 MG TABLET PO PRN (20:07)
[2019-02-18] MEDS: ZOLPIDEM TARTRATE 10 MG TABLET PO PRN (20:07)
[2019-02-19 06:17] VITALS: BP 112/62
[2019-02-19] MEDS: LEVOTHYROXINE SODIUM 75 MCG TABLET PO SCH (06:21)
[2019-02-19] MEDS: DARUNAVIR ETHANOLATE 800 MG TABLET PO SCH (06:21)
[2019-02-19] MEDS: RITONAVIR 100 MG TABLET PO SCH (06:21)
[2019-02-19 08:00] VITALS: BP 103/62
[2019-02-19] MEDS: BuPROPion HCL XL 150 MG ER TABLET PO SCH (08:20)
[2019-02-19] MEDS: EMTRICITABINE/TENOFOVIR 200-300 MG TABLET PO SCH (08:20)
[2019-02-19] MEDS: QUEtiapine FUMARATE 100 MG TABLET PO PRN ×3 (08:21→20:25)
[2019-02-19] MEDS: LORazepam 2 MG TABLET PO PRN ×3 (08:21→20:25)
[2019-02-19 16:10] VITALS: BP 138/83
[2019-02-19] MEDS: SIMVASTATIN 10 MG TABLET PO SCH (20:18)
[2019-02-19] MEDS: OLANZapine 7.5 MG TABLET PO SCH (20:18)
[2019-02-19] MEDS: ZOLPIDEM TARTRATE 10 MG TABLET PO PRN (20:25)
[2019-02-20 01:48] VITALS: BP 104/68
[2019-02-20] MEDS: DARUNAVIR ETHANOLATE 800 MG TABLET PO SCH (06:29)
[2019-02-20] MEDS: LEVOTHYROXINE SODIUM 75 MCG TABLET PO SCH (06:29)
[2019-02-20] MEDS: RITONAVIR 100 MG TABLET PO SCH (06:29)
[2019-02-20 08:23] VITALS: BP 92/63
[2019-02-20] MEDS: BuPROPion HCL XL 150 MG ER TABLET PO SCH (08:56)
[2019-02-20] MEDS: EMTRICITABINE/TENOFOVIR 200-300 MG TABLET PO SCH (08:57)
[2019-02-20] MEDS: OLANZapine 10 MG TABLET PO SCH ×2 (13:32→16:08)
[2019-02-20 16:10] VITALS: BP 128/69
[2019-02-20] MEDS: ZOLPIDEM TARTRATE 10 MG TABLET PO PRN (20:59)
[2019-02-20] MEDS: SIMVASTATIN 10 MG TABLET PO SCH (20:59)
[2019-02-20] MEDS: LORazepam 2 MG TABLET PO PRN (20:59)
[2019-02-20] MEDS: QUEtiapine FUMARATE 100 MG TABLET PO PRN (20:59)
[2019-02-21] MEDS: DARUNAVIR ETHANOLATE 800 MG TABLET PO SCH (06:54)
[2019-02-21] MEDS: LEVOTHYROXINE SODIUM 75 MCG TABLET PO SCH (06:54)
[2019-02-21] MEDS: RITONAVIR 100 MG TABLET PO SCH (06:54)
[2019-02-21 08:22] VITALS: BP 92/59
[2019-02-21] MEDS: EMTRICITABINE/TENOFOVIR 200-300 MG TABLET PO SCH (09:34)
[2019-02-21] MEDS: OLANZapine 10 MG TABLET PO SCH ×2 (09:34→16:33)
[2019-02-21] MEDS: BuPROPion HCL XL 150 MG ER TABLET PO SCH (09:35)
[2019-02-21 16:11] VITALS: BP 108/64
[2019-02-21] MEDS: LORazepam 2 MG TABLET PO PRN (20:02)
[2019-02-21] MEDS: SIMVASTATIN 10 MG TABLET PO SCH (20:03)
[2019-02-22 01:17] VITALS: BP 101/61
[2019-02-22] MEDS: RITONAVIR 100 MG TABLET PO SCH (06:46)
[2019-02-22] MEDS: LEVOTHYROXINE SODIUM 75 MCG TABLET PO SCH (06:46)
[2019-02-22] MEDS: DARUNAVIR ETHANOLATE 800 MG TABLET PO SCH (06:46)
[2019-02-22] MEDS: EMTRICITABINE/TENOFOVIR 200-300 MG TABLET PO SCH (08:20)
[2019-02-22] MEDS: BuPROPion HCL XL 150 MG ER TABLET PO SCH (08:20)
[2019-02-22] MEDS: OLANZapine 10 MG TABLET PO SCH ×2 (08:20→16:10)
[2019-02-22 08:46] VITALS: BP 96/61
[2019-02-22 10:26] VITALS: BP 108/70
[2019-02-22] MEDS: QUEtiapine FUMARATE 100 MG TABLET PO PRN (16:10)
[2019-02-22 16:20] VITALS: BP 107/71
[2019-02-22] MEDS: ZOLPIDEM TARTRATE 10 MG TABLET PO PRN (20:02)
[2019-02-22] MEDS: SIMVASTATIN 10 MG TABLET PO SCH (20:02)
[2019-02-23] MEDS: LEVOTHYROXINE SODIUM 75 MCG TABLET PO SCH (07:05)
[2019-02-23] MEDS: RITONAVIR 100 MG TABLET PO SCH (07:05)
[2019-02-23] MEDS: DARUNAVIR ETHANOLATE 800 MG TABLET PO SCH (07:05)
[2019-02-23 07:06] VITALS: BP 116/95
[2019-02-23 08:27] VITALS: BP 91/54
[2019-02-23] MEDS: BuPROPion HCL XL 150 MG ER TABLET PO SCH (09:54)
[2019-02-23] MEDS: EMTRICITABINE/TENOFOVIR 200-300 MG TABLET PO SCH (09:55)
[2019-02-23] MEDS: OLANZapine 10 MG TABLET PO SCH ×2 (09:55→16:35)
[2019-02-23 16:13] VITALS: BP 114/73
[2019-02-23] MEDS: LORazepam 2 MG TABLET PO PRN (16:35)
[2019-02-23] MEDS: QUEtiapine FUMARATE 100 MG TABLET PO PRN (20:33)
[2019-02-23] MEDS: SIMVASTATIN 10 MG TABLET PO SCH (20:33)
[2019-02-23] MEDS: ZOLPIDEM TARTRATE 10 MG TABLET PO PRN (20:33)
[2019-02-24 06:35] VITALS: BP 123/79
[2019-02-24] MEDS: RITONAVIR 100 MG TABLET PO SCH (06:40)
[2019-02-24] MEDS: LEVOTHYROXINE SODIUM 75 MCG TABLET PO SCH (06:40)
[2019-02-24] MEDS: DARUNAVIR ETHANOLATE 800 MG TABLET PO SCH (06:40)
[2019-02-24] MEDS: EMTRICITABINE/TENOFOVIR 200-300 MG TABLET PO SCH (09:01)
[2019-02-24] MEDS: BuPROPion HCL XL 150 MG ER TABLET PO SCH (09:01)
[2019-02-24] MEDS: OLANZapine 10 MG TABLET PO SCH ×2 (09:01→16:46)
[2019-02-24 16:33] VITALS: BP 120/64
[2019-02-24] MEDS: SIMVASTATIN 10 MG TABLET PO SCH (20:22)
[2019-02-24] MEDS: QUEtiapine FUMARATE 100 MG TABLET PO PRN (20:22)
[2019-02-24] MEDS: LORazepam 2 MG TABLET PO PRN (20:22)
[2019-02-25 03:43] VITALS: BP 118/70
[2019-02-25] MEDS: DARUNAVIR ETHANOLATE 800 MG TABLET PO SCH (07:10)
[2019-02-25] MEDS: LEVOTHYROXINE SODIUM 75 MCG TABLET PO SCH (07:10)
[2019-02-25] MEDS: RITONAVIR 100 MG TABLET PO SCH (07:11)
[2019-02-25 08:09] LABS: APPEARANCE,URINE CLOUDY (CLEAR); BILIRUBIN,URINE NEGATIVE (NEGATIVE); GLUCOSE, URINE (UA) 100 mg/dL (NEGATIVE); KETONES,URINE NEGATIVE (NEGATIVE); LEUKOCYTE ESTERASE ,URINE NEGATIVE (NEGATIVE); NITRATE,URINE NEGATIVE (NEGATIVE); OCCULT BLOOD,URINE LARGE (NEGATIVE); PROTEIN,URINE SEE CONFIRM (NEGATIVE); UROBILINOGEN,URINE 0.2 mg/dL (<=1.0)
[2019-02-25 08:28] VITALS: BP 89/60
[2019-02-25 08:31] LABS: BACTERIA,URINE None Seen /HPF (None Seen); RBC,URINE 51-100 /HPF (0-2); SULFOSALICYLIC ACID,URINE 3+ (Negative); WBC,URINE 0-2 /HPF (0-5)
[2019-02-25] MEDS: EMTRICITABINE/TENOFOVIR 200-300 MG TABLET PO SCH (09:44)
[2019-02-25] MEDS: BuPROPion HCL XL 150 MG ER TABLET PO SCH (09:48)
[2019-02-25] MEDS: OLANZapine 10 MG TABLET PO SCH ×2 (09:48→16:47)
[2019-02-25 13:00] VITALS: BP 109/50
[2019-02-25 16:36] VITALS: BP 97/60
[2019-02-25] MEDS: SIMVASTATIN 10 MG TABLET PO SCH (23:45)
[2019-02-26 06:23] VITALS: BP 103/61
[2019-02-26] MEDS: RITONAVIR 100 MG TABLET PO SCH (06:44)
[2019-02-26] MEDS: LEVOTHYROXINE SODIUM 75 MCG TABLET PO SCH (06:44)
[2019-02-26] MEDS: DARUNAVIR ETHANOLATE 800 MG TABLET PO SCH (06:44)
[2019-02-26 07:53] LABS: CALCIUM, TOTAL 8.7 mg/dL (8.8-10.5); CREATININE 1.82 mg/dL (0.60-1.30); POTASSIUM 3.7 mmol/L (3.5-5.1)
[2019-02-26 08:32] VITALS: BP 100/62
[2019-02-26] MEDS: BuPROPion HCL XL 150 MG ER TABLET PO SCH (09:06)
[2019-02-26] MEDS: EMTRICITABINE/TENOFOVIR 200-300 MG TABLET PO SCH (09:06)
[2019-02-26] MEDS: OLANZapine 10 MG TABLET PO SCH ×2 (09:06→16:34)
[2019-02-26] MEDS: QUEtiapine FUMARATE 100 MG TABLET PO PRN (15:13)
[2019-02-26] MEDS: LORazepam 2 MG TABLET PO PRN (15:13)
[2019-02-26 19:11] VITALS: BP 105/63
[2019-02-26] MEDS: SIMVASTATIN 10 MG TABLET PO SCH (20:41)
[2019-02-27 06:19] VITALS: BP 109/68
[2019-02-27] MEDS: LEVOTHYROXINE SODIUM 75 MCG TABLET PO SCH (06:45)
[2019-02-27] MEDS: DARUNAVIR ETHANOLATE 800 MG TABLET PO SCH (06:45)
[2019-02-27] MEDS: RITONAVIR 100 MG TABLET PO SCH (06:45)
[2019-02-27] MEDS: OLANZapine 10 MG TABLET PO SCH ×2 (09:44→16:32)
[2019-02-27] MEDS: EMTRICITABINE/TENOFOVIR 200-300 MG TABLET PO SCH (09:45)
[2019-02-27] MEDS: BuPROPion HCL XL 150 MG ER TABLET PO SCH (09:45)
[2019-02-27 16:23] VITALS: BP 111/62
[2019-02-27] MEDS: LORazepam 2 MG TABLET PO PRN ×2 (16:32→21:06)
[2019-02-27] MEDS: QUEtiapine FUMARATE 100 MG TABLET PO PRN (21:06)
[2019-02-27] MEDS: SIMVASTATIN 10 MG TABLET PO SCH (21:06)
[2019-02-28] MEDS: RITONAVIR 100 MG TABLET PO SCH (06:39)
[2019-02-28] MEDS: DARUNAVIR ETHANOLATE 800 MG TABLET PO SCH (06:39)
[2019-02-28] MEDS: LEVOTHYROXINE SODIUM 75 MCG TABLET PO SCH (06:39)
[2019-02-28 08:29] VITALS: BP 95/85
[2019-02-28] MEDS: OLANZapine 10 MG TABLET PO SCH ×2 (08:57→16:26)
[2019-02-28] MEDS: EMTRICITABINE/TENOFOVIR 200-300 MG TABLET PO SCH (08:57)
[2019-02-28] MEDS: BuPROPion HCL XL 150 MG ER TABLET PO SCH (08:57)
[2019-02-28 16:48] VITALS: BP 107/69
[2019-02-28] MEDS: SIMVASTATIN 10 MG TABLET PO SCH (21:00)
[2019-02-28 21:26] VITALS: BP 133/80
[2019-02-28] MEDS: LORazepam 2 MG TABLET PO PRN (21:27)
[2019-03-01] MEDS ORDERED: RITONAVIR 100 MG TABLET PO SCH
[2019-03-01] MEDS: RITONAVIR 100 MG TABLET PO SCH (06:26)
[2019-03-01] MEDS: DARUNAVIR ETHANOLATE 800 MG TABLET PO SCH (06:26)
[2019-03-01] MEDS: LEVOTHYROXINE SODIUM 75 MCG TABLET PO SCH (06:26)
[2019-03-01 06:47] VITALS: BP 92/57
[2019-03-01] MEDS: BuPROPion HCL XL 150 MG ER TABLET PO SCH (09:23)
[2019-03-01] MEDS: EMTRICITABINE/TENOFOVIR 200-300 MG TABLET PO SCH (09:23)
[2019-03-01] MEDS: OLANZapine 10 MG TABLET PO SCH ×2 (09:25→16:33)
[2019-03-01] MEDS ORDERED: OLAN10TA3 PO (12:46)
[2019-03-01] MEDS ORDERED: LORA-1001 PO (12:48)
[2019-03-01] MEDS ORDERED: ZOLP10TA7 PO (12:50)
[2019-03-01] MEDS ORDERED: QUET100T PO (12:53)
[2019-03-01 16:12] VITALS: BP 106/70
[2019-03-01] MEDS: LORazepam 2 MG TABLET PO PRN (17:08)
[2019-03-01] MEDS: SIMVASTATIN 10 MG TABLET PO SCH (20:30)
[2019-03-01] MEDS: ZOLPIDEM TARTRATE 10 MG TABLET PO PRN (20:30)
[2019-03-02 04:09] VITALS: BP 110/72
[2019-03-02] MEDS: LEVOTHYROXINE SODIUM 75 MCG TABLET PO SCH (06:53)
[2019-03-02] MEDS: RITONAVIR 100 MG TABLET PO SCH (06:53)
[2019-03-02] MEDS: DARUNAVIR ETHANOLATE 800 MG TABLET PO SCH (06:53)
[2019-03-02] MEDS: OLANZapine 10 MG TABLET PO SCH (08:19)
[2019-03-02] MEDS: EMTRICITABINE/TENOFOVIR 200-300 MG TABLET PO SCH (08:19)
[2019-03-02] MEDS: BuPROPion HCL XL 150 MG ER TABLET PO SCH (08:19)
== END 2019-03-02 13:00 | DRG 750 ==
LOC: EMS 16:36 → B3A 02-05 01:12
PROVIDERS: ATTEND Psychiatry & Neurology Psychiatry
DX: F25.1 Schizoaffective disorder, depressive type (principal); R45.851 Suicidal ideations; Z59.0 Homelessness; E03.9 Hypothyroidism, unspecified; E78.5 Hyperlipidemia, unspecified; N18.9 Chronic kidney disease, unspecified; K59.00 Constipation, unspecified; K21.9 Gastro-esophageal reflux disease without esophagitis; F10.10 Alcohol abuse, uncomplicated; R31.0 Gross hematuria; F32.9 Major depressive disorder, single episode, unspecified; F41.9 Anxiety disorder, unspecified; Z88.8 Allergy status to other drugs, medicaments and biological substances; Z79.899 Other long term (current) drug therapy; Z71.41 Alcohol abuse counseling and surveillance of alcoholic; Z87.442 Personal history of urinary calculi; Z91.5 Personal history of self-harm; Z91.018 Allergy to other foods
CPT/HCPCS: 83036; 84439; 86355; 86357; 86359; 86360; 87081; 93005; G0480

== ENCOUNTER 2019-02-25 18:58 | Emergency (ER) | payer MEDICAID ==
[~2019-02-25] VITALS: Ht 167.6 cm; Wt 68.2 kg
[~2019-02-25 18:58] MED LIST changes: +QUET100T PO; -QUET200T PO
[2019-02-25 21:48] LABS: APPEARANCE,URINE CLEAR (CLEAR); BILIRUBIN,URINE NEGATIVE (NEGATIVE); GLUCOSE, URINE (UA) 100 mg/dL (NEGATIVE); KETONES,URINE NEGATIVE (NEGATIVE); LEUKOCYTE ESTERASE ,URINE TRACE (NEGATIVE); NITRATE,URINE NEGATIVE (NEGATIVE); OCCULT BLOOD,URINE NEGATIVE (NEGATIVE); PH,URINE 6.5 (5.0-8.0); PROTEIN,URINE POS 1+ (NEGATIVE); UROBILINOGEN,URINE 0.2 mg/dL (<=1.0)
[2019-02-25 21:59] LABS: BACTERIA,URINE Few /HPF (None Seen); RBC,URINE 0-2 /HPF (0-2); SQUAMOUS EPITHELIAL CELL,UR Few /LPF (None Seen); TRANSITIONAL EPI CELLS,URINE Few /LPF (None Seen)
[2019-02-25 22:30] VITALS: BP 124/73
== END 2019-02-26 00:11 | disposition home or self-care (01) ==
LOC: EMS 19:00
DX: N48.89 Other specified disorders of penis (principal); F31.9 Bipolar disorder, unspecified; K21.9 Gastro-esophageal reflux disease without esophagitis; E03.9 Hypothyroidism, unspecified; Z88.8 Allergy status to other drugs, medicaments and biological substances; Z91.018 Allergy to other foods
CPT/HCPCS: 87086

== ENCOUNTER 2022-06-16 16:33 | Emergency (ER) | payer MEDICAID, OTHER ==
[~2022-06-16] VITALS: Ht 167.6 cm; Wt 63.6 kg
[~2022-06-16 16:33] MED LIST changes: +BUPR-50 PO; -BUPR-93 PO; +EMTR1TAB53 PO; +LORA-1001 PO; +OLAN10TA74 PO; -OLAN7.5T2 PO; -OMEP20 PO; -TRUVT PO; +ZOLP10TA8 PO
[2022-06-16] MEDS ORDERED: RAME8TAB8 PO (18:18)
[2022-06-16] MEDS ORDERED: NALT50TA6 PO (18:18)
[2022-06-16] MEDS ORDERED: MIRT-89 PO (18:18)
[2022-06-16] MEDS ORDERED: QUEtiapine FUMARATE 100 MG TABLET PO ONE (19:15)
[2022-06-16] MEDS ORDERED: LORazepam 2 MG TABLET PO ONE (19:15)
[2022-06-16 22:11] VITALS: BP 136/76
== END 2022-06-16 22:14 | disposition home or self-care (01) ==
LOC: EMS 16:35
DX: F20.0 Paranoid schizophrenia (principal); N31.9 Neuromuscular dysfunction of bladder, unspecified; F31.9 Bipolar disorder, unspecified; K21.9 Gastro-esophageal reflux disease without esophagitis; F20.9 Schizophrenia, unspecified; Z87.442 Personal history of urinary calculi; Z88.8 Allergy status to other drugs, medicaments and biological substances
CPT/HCPCS: 99284; Z7502; Z7610